=== PATIENT | female | born 1995 | race Caucasian/White ===

== ENCOUNTER 2022-01-12 08:01 | Day surgery (SDC) | payer MEDICAID, SELFPAY ==
[2022-01-12 08:35] VITALS: BP 117/83; PULSE 106; RESP 16; TEMP 36.6; O2SAT 100; BMI 24.3
[2022-01-12] MEDS: Lactated Ringers 1,000 ML 15 ML IV (08:42)
[2022-01-12 08:44] LABS: Internal QC Validated? YES +Cl - CLEAR BKGD; Pregnancy, Urine Negative Negative
--- NOTE | 2022-01-12 09:03 | PCM.DC.SUM ---
Providers Primary Care Physician: No Primary Care Phys Reason For Visit: LT MYRINGOTOMY W TUBES Medications at Discharge Home Medications NK 01/05/22 Weight / BMI Weight Weight: 58.5 kg Body Mass Index (BMI) 24.3 ABG / Lab / Microbiology Data Laboratory: Laboratory Results - last 24 hr 01/12/22 08:15: Urine Test Negative D/C Instructions Discharge Diet: No restrictions Discharge Activity: Return to Normal Activity Additional Activity Instructions: Ear Drops.....5 drops in the left ear every 12 hours for 3 doses. Start tonight. Please Follow Up With: Franck Rodas MD When: 2 weeks Meaningful Use Info Meaningful Use Diagnoses (Choose all that apply): None applicable Discharge Plan Admission Attending Provider: rFanck Rodas Primary Care Provider: Care Physician,Aretha Primary Discharge Orders/Prescriptions Prescriptions: No Action NK Referrals / Follow Up: Care Physician,No Primary [Primary Care Provider] - Disposition Disposition (needs filled in before D/C Order can be placed): Home, Self Care
--- NOTE | 2022-01-12 09:11 | PCM.OPRPT ---
Report of Operation Date of Procedure: 01/12/22 Pre-Operative Diagnosis: left chronic serous otitis media Post-Operative Diagnosis: same Surgery/Procedure Performed:: left myringotomy with t tube Surgeon: Franck Rodas Type of Anesthesia: General Anesthesiologist: Eric Bautista Estimated Blood Loss (mL): minimal Description of Procedure: The patient was taken to the operating room on 01/12/2022. The patient was placed in the supine position on the operating room table. The patient was given sufficient general anesthesia. The operating microscope was used throughout the entire case. A speculum was inserted into the patient's left ear. Cerumen was removed using a curette. An incision was placed in the anterior inferior quadrant of the tympanic membrane. Fluid was suctioned from the middle ear space using a #5 suction. A T tube was placed without difficulty. Antibiotic drops were instilled into the patient's ear. The patient was then awoken. They were brought to the recovery room in stable condition. Blood loss minimal replacement none sponge needle and instrument counts correct at the end of the procedure.
[2022-01-12 09:19] VITALS: BP 100/60; BP 117/83; PULSE 87; RESP 16; TEMP 36.8; O2SAT 98
[2022-01-12 09:30] VITALS: BP 117/83; BP 97/59; PULSE 87; RESP 16; O2SAT 97
[2022-01-12 09:45] VITALS: BP 111/79; BP 117/83; PULSE 79; RESP 16; O2SAT 100
[2022-01-12 10:00] VITALS: BP 107/76; BP 117/83; PULSE 73; RESP 16; TEMP 36.6; O2SAT 100
[2022-01-12 10:24] VITALS: BP 117/83
== END 2022-01-12 10:30 | disposition home or self-care (01) ==
LOC: SDC 08:05 → AC 08:16
PROVIDERS: Anesthesiology; Referring Provider Otolaryngology; Visit Provider Otolaryngology
PROC: (CPT 69421; principal; 2022-01-12 09:45)
DX: H65.22 Chronic serous otitis media, left ear (principal)
CPT/HCPCS: 69421; 81025; J7120; J2405

== ENCOUNTER → 2022-01-22 | Outpatient (CLI) | payer MEDICAID, SELFPAY | END | disposition home or self-care (01) | LOC: LABSPEC 15:27 | PROVIDERS: Visit Provider Otolaryngology | DX: J02.9 Acute pharyngitis, unspecified (principal) | CPT/HCPCS: 87070 ==